=== PATIENT | female | born 1955 | race Caucasian/White ===

== ENCOUNTER 2022-07-12 13:22 | Outpatient (REF) | payer MEDICARE, MEDICAID, SELFPAY ==
[2022-07-12 14:23] LABS: MANUAL DIFF FLAG NO
[2022-07-12 15:04] LABS: Basophils Absolute Auto 0.1 X10*3/uL (0.0-0.2); Basophils Percent Auto 0.5 % (0-2); Eosinophils Absolute Auto 0.1 X10*3/uL (0.0-0.4); Eosinophils Percent Auto 0.6 % (0-4); Hematocrit 42.7 % (37.0-47.0); Hemoglobin 13.8 g/dl (12.0-16.0); Imm Gran Abs Auto 0.04 X10*3/uL (0.00-0.03); Imm Gran Pct Auto 0.4 % (0.0-0.4); Lymphocytes Absolute Auto 2.1 X10*3/uL (1.2-4.9); Lymphocytes Percent Auto 20.1 % (20-40); Mean Corpuscular HGB Conc 32.3 g/dl (31.0-35.0); Mean Corpuscular Hemoglobin 29.2 pg (27.0-33.0); Mean Corpuscular Volume 90.3 fL (80.0-98.0); Mean Platelet Volume 10.9 fL (9.4-12.3); Monocytes Absolute Auto 0.4 X10*3/uL (0.1-1.2); Monocytes Percent Auto 3.8 % (2-11); Neutrophils Absolute Auto 7.8 x10*3/uL (2.0-8.3); Neutrophils Percent Auto 74.6 % (45-73); Platelet Count 303 X10*3/uL (160-400); Red Blood Count 4.73 X10*6/uL (4.20-5.50); Red Cell Distribution Width 12.8 % (11.0-16.0); White Blood Count 10.4 X10*3/uL (4.8-10.8)
[2022-07-12 15:52] LABS: TSH reflex Free T4 1.38 uIU/mL (0.32-4.0)
== END 2022-07-12 13:23 | disposition home or self-care (01) ==
LOC: HO.LAB 13:22
PROVIDERS: PCP Nurse Practitioner; Visit Provider Internal Medicine Pulmonary Disease
DX: J45.909 Unspecified asthma, uncomplicated (principal); R06.09 Other forms of dyspnea; G47.33 Obstructive sleep apnea (adult) (pediatric); R93.89 Abnormal findings on diagnostic imaging of other specified body structures; Z86.19 Personal history of other infectious and parasitic diseases
CPT/HCPCS: 36415; 82785; 84443; 85025; 86003; 99202

== ENCOUNTER → 2022-07-26 10:56 | Outpatient (REF) | payer MEDICARE, MEDICAID, SELFPAY ==
--- NOTE | 2022-07-26 10:59 | CA_ITS ---
Transthoracic Echocardiogram Patient (Last, First, Middle): Maryann Springer A Gender: Female Date of : 1955 Age: 67 Procedure Date: 07/26/2022 Procedure Type: Transthoracic Echocardiogram Location: OP Height: 165.1 cm Weight: 81.65 kg BSA: 1.89 m2 Heart Rate: bpm BP: 149 / 86 mmHg Finance Administrator: VERA Referring MD: Adalid Sampson MD Data Collection Interviewer: Jesus Serrano MD Symptoms: R06.09 - Other forms of dyspnea Study Quality: Technically Difficult, contrast ECG Rhythm: Sinus Conclusions: - 1. Normal LV systolic function with mild LVH with impaired relaxation filling pattern and elevated filling pressures 2. Cardiac valvular Doppler is within normal limits 3. RV systolic pressure within normal limits Findings Procedure Information Contrast agent, definity, is being given per protocol without apparent complications. Left Ventricle Normal left ventricular size and systolic function. There is mildly increased left ventricular wall thickness. The visually estimated ejection fraction is between 60-65%. Spectral Doppler is indicative of an impaired relaxation filling pattern. Elevated filling pressures. E/E prime ratio is >15, consistent with elevated filling pressures. Right Ventricle Normal right ventricular cavity size. Atria The left atrium was not well visualized. There is lipomatous hypertrophy of the interatrial septum. Interatrial shunt cannot be excluded. The right atrium was not well visualized. Aortic Valve There is mild calcification of the aortic valve. There is no aortic valve stenosis. There is no aortic valve regurgitation. Mitral Valve There is mild anterior and posterior mitral leaflet thickening. There is mild mitral annular calcification. There is trace mitral valve regurgitation. There is no mitral valve stenosis. Pulmonic Valve The pulmonic valve was not well visualized. Tricuspid Valve The tricuspid valve was not well visualized. There is trace tricuspid valve regurgitation. The right ventricular systolic pressure is normal. Great Vessels The aorta was not well visualized. The pulmonary artery was not well visualized. Venous The inferior vena cava is normal in size. Pericardium/Pleural The pericardium was not well visualized. Prior Study Comparison No prior study available for comparison. Measurements 2D Linear Measurements IVSd: 1.26 0.6-0.9/0.6-1.0 cm LVIDd: 4.10 3.9-5.3/4.2-5.9 cm LVIDd Index: 2.17 2.4-3.2/2.2-3.1 cm/m2 LVIDs: 2.71 2.0-3.6 cm LVPWd: 1.24 0.7-1.1 cm LA Diam: 3.60 2.7-3.8/3.0-4.0 cm LAIDs Index: 1.90 1.5-2.3 cm/m2 LV Mass: 227.32 67-162/88-224 g LV Mass Index: 120.27 43-95/49-115 g/m2 LVOT Diam: 1.90 3.0+(-)1.3 cm 2D Systolic Function EF 4C: 63.20 >55% EF 2C: 71.10 >55% EF BiP: 66.30 >55% Mitral Valve MV Pk E: 0.77 MV PK A: 1.07 MV Decel Time: 193.00 E/A: 0.70 E'Lateral: 5.11 E'Medial: 4.24 E/E' Med: 18.10 E/E' Lat: 15.00 PHT: 56.00 MVA PHT: 3.93 Decel [place]: 3.98 Aortic Valve AoV Pk Trevor: 1.13 AoV Mn Trevor: 0.84 AoV VTI: 0.26 AoV Pk Grad: 5.00 Aov Mn Grad: 3.00 BRETT Cont.VTI: 1.91 LVOT LVOT Pk Trevor: 0.81 LVOT Mn Trevor: 0.58 LVOT VTI: 0.18 LVOT Pk Grad: 3.00 LVOT Mn Grad: 2.00 LVOT Diam: 1.90 LVOT Area: 2.84 Diastolic Function MV Pk E: 0.77 MV Pk A: 1.07 E/A: 0.70 E'Medial: 4.24 E/E' Med: 18.10 E' Laterial: 5.11 E/E' Lat: 15.00 Right Ventricle TAPSE (mm): 21.30 TVS' Trevor: 10.80 Tricuspid Valve TR Pk Trevor: 1.62 TR Pk Grad: 10.00 Great Vessels Aorta Sinus of Valsalva: 3.24 2.0-3.[address] [place]: 2.49 1.7-3.4 cm Ao Asc: 3.20 2.1-3.4 cm Updated in Other Vendor System with Status of Final Jesus Serrano MD electronically signed on 07/28/2022 1:00:43 PM with status of Final
== END ==
LOC: HO.CARD 10:56
PROVIDERS: PCP Nurse Practitioner; Visit Provider Internal Medicine Pulmonary Disease
DX: R06.09 Other forms of dyspnea (principal)
CPT/HCPCS: 93306; Q9957

== ENCOUNTER 2022-07-31 08:59 | Outpatient (REF) | payer MEDICARE, MEDICAID, SELFPAY ==
--- NOTE | 2022-07-31 15:24 | PFT_ITS ---
INDICATION: Asthma. SPIROMETRY: FEV1 to FVC of 91% with an FEV1 of 2.06 L, which is 36% predicted and an FVC of 2.26 L, which is 71% predicted. No significant response to bronchodilator is noted. Maximum voluntary ventilation is 71% of predicted. LUNG VOLUMES: Total lung capacity 73% predicted with an expiratory reserve volume of 74% predicted. DIFFUSION CAPACITY: 64% predicted. COMPARISONS: None. INTERPRETATION: No obstructive ventilatory defects. No significant response to bronchodilators noted. There is a mild decrease in maximum voluntary ventilation likely secondary to deconditioning of the neuromuscular conditions cannot be ruled out. Lung volumes do demonstrate restrictive ventilatory defect consistent with mild restrictive lung disease. In addition to that, there is also mild diffusion impairment. This mild diffusion impairment does correct when correcting for the alveolar volume although additional evaluation is warranted. Clinical correlation warranted. MD MARIE Moreno/MODL / [id number]
== END 2022-07-31 09:00 | disposition home or self-care (01) ==
LOC: HO.RESP 08:59
PROVIDERS: PCP Nurse Practitioner; Visit Provider Internal Medicine Pulmonary Disease
DX: J45.909 Unspecified asthma, uncomplicated (principal)
CPT/HCPCS: 94060; 94727; 94729

== ENCOUNTER → 2022-10-26 11:23 | Outpatient (BNVA) | payer MEDICARE, MEDICAID, SELFPAY | PROVIDERS: PCP Internal Medicine; Visit Provider Internal Medicine Pulmonary Disease | DX: J45.909 Unspecified asthma, uncomplicated (principal); G47.33 Obstructive sleep apnea (adult) (pediatric); R06.09 Other forms of dyspnea | CPT/HCPCS: 99212 ==